=== PATIENT | female | born 1965 | race Two or more races ===

== ENCOUNTER 2018-03-03 05:13 | Emergency (ER) | payer MEDICAID ==
[~2018-03-03] VITALS: Ht 167.6 cm; Wt 57.6 kg
[2018-03-03 05:17] VITALS: BP 140/93
== END 2018-03-03 06:18 | disposition home or self-care (01) ==
LOC: ER 05:17
DX: M54.5 Low back pain (principal); J11.1 Influenza due to unidentified influenza virus with other respiratory manifestations; Z98.890 Other specified postprocedural states
CPT/HCPCS: 99282; A4606; Z7610

== ENCOUNTER 2018-04-11 02:25 | Emergency (ER) | payer MEDICAID ==
[~2018-04-11] VITALS: Ht 167.6 cm; Wt 56.2 kg
--- NOTE | 2018-04-11 02:35 | NUR ---
URINE COLLECTED AND SENT TO LAB
--- NOTE | 2018-04-11 02:45 | NUR ---
Pt came in c/o back pain during triage but denies it at this time stating she took Aspirin 600 mg @ 0058 and was relieved. She is pointing to the right side of her neck as the source of pain now and reported pain and slight swelling to her right wrist. Pt has flight of ideas, takes Latuda and Wellbutrin, showed document from [facility].
[2018-04-11 02:51] LABS: APPEARANCE,URINE CLEAR (CLEAR); BILIRUBIN,URINE NEGATIVE (NEGATIVE); BLOOD, URINE 2+ Ery/uL (NEGATIVE); COLOR,URINE YELLOW (YELLOW); KETONES,URINE NEGATIVE (NEGATIVE); LEUKOCYTE ESTERASE ,URINE NEGATIVE (NEGATIVE); NITRITE, URINE NEGATIVE (NEGATIVE); PROTEIN,URINE NEGATIVE (NEGATIVE); UGLUCOSE NEGATIVE (NEGATIVE); UROBILINOGEN,URINE 0.2 EU/dL (0.2)
--- NOTE | 2018-04-11 02:55 | NUR ---
Seen and evaluated by Dr. Montenegro at [facility], refuses Xray .
[2018-04-11 03:05] LABS: BACTERIA,URINE Few /HPF (None Seen); RBC,URINE 21-50 /HPF (0-2); SQUAMOUS EPITHELIAL CELL,UR Few /HPF (None Seen); WBC,URINE 0-2 /HPF (0-3)
--- NOTE | 2018-04-11 03:14 | NUR ---
Pt refuses further assessment, states she feels better with ice pack .
[2018-04-11 03:15] VITALS: BP 113/90
--- NOTE | 2018-04-11 03:15 | NUR ---
Patient discharged to home in stable condition. Written and verbal after care instructions given. Patient verbalizes understanding of instruction.Pt ambulatory with a steady gait, VSS
== END 2018-04-11 03:16 | disposition home or self-care (01) ==
LOC: ER 02:25
DX: M25.531 Pain in right wrist (principal); M54.5 Low back pain; R30.0 Dysuria; F17.200 Nicotine dependence, unspecified, uncomplicated; Z98.890 Other specified postprocedural states
CPT/HCPCS: 81000-TC; 82962-TC

== ENCOUNTER 2019-01-06 03:53 | Emergency (ER) | payer MEDICAID ==
[~2019-01-06] VITALS: Ht 167.6 cm; Wt 50.8 kg
[2019-01-06 04:00] VITALS: BP 116/69
--- NOTE | 2019-01-06 04:00 | NUR ---
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 I ASKED THE PATIENT WHY SHE DECIDED TO GET CHECKED OUT NOW AND NOT 3 WEEKS AGO AND SHE REPORTED THAT HER BOYFRIEND WAS SUPPOSE TO PICK HER UP BUT HE NEVER SHOWED UP AND SHE THOUGHT OF THE HOSPITAL BEING HERE AND DECIDED TO GET CHECKED OUT INSTEAD. PATIENT WAS WORRIED ABOUT THE WEIGHT LOSS FROM 114LBS AND TODAY SHE WEIGHS 112LBS.
--- NOTE | 2019-01-06 04:06 | NUR ---
IN[facility]S TRIPP AT BEDSIDE TO [facility].
== END 2019-01-06 04:25 | disposition home or self-care (01) ==
LOC: ER 03:54
DX: R63.4 Abnormal weight loss (principal); N93.9 Abnormal uterine and vaginal bleeding, unspecified; F17.200 Nicotine dependence, unspecified, uncomplicated; Z98.890 Other specified postprocedural states

== ENCOUNTER 2019-01-18 23:18 | Emergency (ER) | payer MEDICAID ==
[~2019-01-18] VITALS: Ht 167.6 cm; Wt 50.8 kg
[2019-01-18 23:20] VITALS: BP 147/69
--- NOTE | 2019-01-18 23:20 | NUR ---
PT BIBSELF C/O L SIDED LOW BACK PAIN S/P SLIPPED AND FALL. PT AOX4. NAD NOTED. RESP EVEN AND UNLABORED. PT AMBULATORY. PT DENIES KO. PT IN BED 15. WILL CONTINUE TO MONITOR.
[2019-01-19] MEDS ORDERED: KETOROLAC TROMETHAMINE INJ 60 MG/2 ML VIAL IM ONE ×2 (00:18→00:30)
--- NOTE | 2019-01-19 00:23 | NUR ---
PT REFUSED MED. AWARE.
[2019-01-19] MEDS ORDERED: IBUPROFEN 600 MG TABLET PO ONE ×2 (00:25→00:30)
--- NOTE | 2019-01-19 01:12 | NUR ---
RADIOLOGY AT BEDSIDE FOR XRAY
== END 2019-01-19 04:22 | disposition home or self-care (01) ==
LOC: ER 23:20
DX: M54.5 Low back pain (principal); F17.200 Nicotine dependence, unspecified, uncomplicated; Z98.890 Other specified postprocedural states; W01.0XXA Fall on same level from slipping, tripping and stumbling without subsequent striking against object, initial encounter; Y93.K1 Activity, walking an animal; Y92.89 Other specified places as the place of occurrence of the external cause; Y99.8 Other external cause status
CPT/HCPCS: 72190; 99283; J1885